=== PATIENT | female | born 1930 | race Caucasian/White ===

== ENCOUNTER → 2017-01-21 | Outpatient (CLI) | payer OTHER, MEDICARE ==
[~2017-01-21] MED LIST: ACET-24 PO; ACET1TAB84 PO; AMLO-114 PO; ASPEC325 PO; ASPI81TA28 PO; CLC100 PO; CLON0.2T PO; CTP/1 PO; CYAN10005 PO; DIPH-437 PO; DLCS PR; FRRG PO; HYDR12.55 PO; HYG/25 PO; LEVO137T3 PO; LOSA1TAB38 PO; METF1TAB53 PO; MULT1CAP43 PO; MULTCAP33 PO; OMEG10007 PO; POLY335019 PO; SIMV10TA2 PO; TRMO115 TOP; ULT50X PO
[2017-01-21 17:53] LABS: BASO % 0.5 %; BASO ABS # 0.05 K/uL (0-0.2); COMPLETE YES; EOS % 4.2 %; HEMATOCRIT 38.6 % (37-47); IG% 0.1 %; LYMPH % 16.4 %; LYMPH ABS # 1.53 K/uL (1.2-3.4); MEAN CELL VOLUME 81.6 fL (80-100); MEAN CORPUSCULAR HEMOGLOBIN 26.4 pg (25-34); MEAN CORPUSCULAR HGB CONC 32.4 g/dl (32-36); MEAN PLATELET VOLUME 10.8 fL (7.4-10.4); MONO % 7.3 %; NEUT % 71.5 %; PLATELET COUNT 246 K/uL (130-400); RED BLOOD COUNT 4.73 M/uL (4.2-5.4); WHITE BLOOD COUNT 9.33 K/uL (4.8-10.8)
[2017-01-21 18:00] LABS: ALT/SGPT 16 U/L (12-78); BLOOD UREA NITROGEN 28 mg/dl (7-18); BUN/CREATININE RATIO 33.3 (10-20); CARBON DIOXIDE 24 mmol/L (21-32); CHLORIDE 108 mmol/L (98-107); CREATININE 0.84 mg/dl (0.60-1.20); GLUCOSE 106 mg/dl (70-99); POTASSIUM 4.6 mmol/L (3.5-5.1); SODIUM 141 mmol/L (136-145)
[2017-01-21 18:03] LABS: ALB/GLOB RATIO 0.9 (0.9-2); ALKALINE PHOSPHATASE 90 U/L (45-117); AST/SGOT 13 U/L (15-37)
[2017-01-21 18:21] LABS: RATIO 655.6 mcg/mg (0-30.0)
[2017-01-22 06:35] LABS: ESTIMATED AVERAGE GLUCOSE 154 mg/dl; HA1C FLAG Normal (Normal)
== END | disposition home or self-care (01) ==
LOC: C.LABMFLN 09:48
PROVIDERS: ATTEND Family Medicine
DX: E11.9 Type 2 diabetes mellitus without complications (principal)

== ENCOUNTER → 2017-06-02 | Outpatient (CLI) | payer OTHER, MEDICARE ==
[~2017-06-02] MED LIST changes: -AMLO-114 PO; -CYAN10005 PO; -HYDR12.55 PO; -MULTCAP33 PO
[2017-06-02 18:09] LABS: URINE PROTIEN/CREAT RATIO 0.2 (0-0.2); URINE TOTAL PROTEIN 21.7 mg/dl (0-11.9)
[2017-06-02 18:12] LABS: URINE APPEARANCE CLEAR (CLEAR); URINE BILIRUBIN NEG (NEG); URINE COLOR YELLOW; URINE EPITHELIAL CELL AUTO >30 /lpf (0-5); URINE NITRITE POS (NEG); URINE SPECIFIC GRAVITY 1.023 (1.000-1.030); UROBILINOGEN NEG (NEG)
[2017-06-02 18:21] LABS: BLOOD UREA NITROGEN 31 mg/dl (7-18); BUN/CREATININE RATIO 32.6 (10-20); CALCIUM 9.8 mg/dl (8.5-10.1); CARBON DIOXIDE 26 mmol/L (21-32); CHLORIDE 108 mmol/L (98-107); CREATININE 0.96 mg/dl (0.60-1.20); GLUCOSE 128 mg/dl (70-99); SODIUM 141 mmol/L (136-145)
[2017-06-02 18:22] LABS: MANUAL MICROSCOPIC REQUIRED? NO; PHOSPHORUS 3.3 mg/dl (2.5-4.9); REVIEW REQ? YES
[2017-06-03 06:55] LABS: ESTIMATED AVERAGE GLUCOSE 169 mg/dl; HA1C FLAG Normal (Normal)
== END | disposition home or self-care (01) ==
LOC: C.LABMFLN 15:34
PROVIDERS: ATTEND Internal Medicine Nephrology
DX: E11.9 Type 2 diabetes mellitus without complications (principal); I10 Essential (primary) hypertension

== ENCOUNTER 2017-06-24 05:17 | Inpatient (IN) | payer OTHER, MEDICARE ==
[2017-05-21 14:12] VITALS: BMI 33.0
--- NOTE | 2017-05-21 15:02 | PAT Medication Instructions ---
Service Date May 21, 2017. Current Home Medication List Acetaminophen (Tylenol Arthritis Ext Rel), 650 MG PO Q8H PRN for PRN Acetaminophen/Diphenhydramine (Tylenol Pm), 1 TAB PO HS Aspirin (Aspirin Ec), 81 MG PO HS Chlorthalidone (Hygroton), 25 MG PO QAM Clonidine Hcl (Catapres), 0.2 MG PO BID Fish Oil (Stafford-3), 1 CAP PO BID Levothyroxine Sodium (Levothyroxine Sodium), 1 TAB PO QAM Losartan Potassium (Cozaar), 100 MG PO QAM Metformin Hcl (Glucophage Ext Rel), 1,000 MG PO BID Multiple Vitamins W/ Minerals (Icaps Areds 2), 1 TAB PO BID Simvastatin (Zocor), 10 MG PO HS Triamcinolone Acet (Triamcinolone Acetonide), 1 APPLN 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 Instructions For Your Scheduled Surgery - Hold the following medications 2 weeks prior to surgery: Fish Oil (Stafford-3), 1 CAP PO BID - Hold the following medications 48 hours prior to surgery: Metformin Hcl (Glucophage Ext Rel), 1,000 MG PO BID - Hold the following medications 24 hours prior to surgery: Triamcinolone Acet (Triamcinolone Acetonide), 1 APPLN TOP TID PRN - Hold the following medications the morning of surgery: Chlorthalidone (Hygroton), 25 MG PO QAM Losartan Potassium (Cozaar), 100 MG PO QAM Multiple Vitamins W/ Minerals (Icaps Areds 2), 1 TAB PO BID - Take the following medications the morning of surgery with a sip of water OTHERWISE NOTHING TO EAT OR DRINK AFTER MIDNIGHT: Levothyroxine Sodium (Levothyroxine Sodium), 1 TAB PO QAM Clonidine Hcl (Catapres), 0.2 MG PO BID Acetaminophen (Tylenol Arthritis Ext Rel), 650 MG PO Q8H PRN for PRN (may take if needed up to 4 hours prior to surgery) - Take the following medications as scheduled the night before surgery: Simvastatin (Zocor), 10 MG PO HS Aspirin (Aspirin Ec), 81 MG PO HS Acetaminophen/Diphenhydramine (Tylenol Pm), 1 TAB PO HS If you have any questions please call us at [phone] or [phone] or [phone]
[2017-05-21 15:40] LABS: BASO % 0.3 %; BASO ABS # 0.03 K/uL (0-0.2); COMPLETE YES; EOS % 1.7 %; HEMATOCRIT 39.7 % (37-47); IG% 0.2 %; LYMPH % 16.4 %; LYMPH ABS # 1.67 K/uL (1.2-3.4); MEAN CELL VOLUME 82.5 fL (80-100); MEAN CORPUSCULAR HEMOGLOBIN 26.4 pg (25-34); MEAN PLATELET VOLUME 9.9 fL (7.4-10.4); MONO % 7.2 %; NEUT % 74.2 %; PLATELET COUNT 329 K/uL (130-400); RED BLOOD COUNT 4.81 M/uL (4.2-5.4); WHITE BLOOD COUNT 10.21 K/uL (4.8-10.8)
[2017-05-21 15:56] LABS: BLOOD UREA NITROGEN 26 mg/dl (7-18); BUN/CREATININE RATIO 21.7 (10-20); C-REACTIVE PROTEIN < 0.29 mg/dl (0-0.29); CALCIUM 9.3 mg/dl (8.5-10.1); CARBON DIOXIDE 24 mmol/L (21-32); CHLORIDE 107 mmol/L (98-107); GLUCOSE 135 mg/dl (70-99); POTASSIUM 3.9 mmol/L (3.5-5.1); SODIUM 142 mmol/L (136-145)
[2017-05-21 15:58] LABS: PARTIAL THROMBOPLASTIN RATIO 1.1; PROTHROMBIN TIME (PATIENT) 11.1 SECONDS (9.0-12.0)
--- NOTE | 2017-06-19 12:22 | History and Physical ---
History & Physical Date Jun 19, 2017. Chief Complaint Progressive Right Hip Pain History of Present Illness The patient is a 86 year old female with complaints of Right hip pain. Initially responsive to injections, but not recently. Pain progressive and increasing despite conservative care to the point she needs to use a walker to get around. Mostly groin and thigh pain. Concerned about falling. Walking tolerance less than a block. Past Medical/Surgical History HTN Elevated cholesterol Diabetes X 10 years Hypothyroidism Obesity - BMI = 34 Bilateral TKR Left THR Hammertoe repair Throid removal Additional History Hepatic Disease: No Endocrine Disorder: Yes Kidney Disease: No Hypertension: Yes Heart Disease: No Bleeding Tendencies: No Infectious Diseases: No Allergies Coded Allergies: No Known Allergies (Verified , 05/21/17) Home Medications Scheduled Acetaminophen/Diphenhydramine (Tylenol Pm), 1 TAB PO HS Aspirin (Aspirin Ec), 81 MG PO HS Chlorthalidone (Hygroton), 25 MG PO QAM Clonidine Hcl (Catapres), 0.2 MG PO BID Fish Oil (Marina-3), 1 CAP PO BID Levothyroxine Sodium (Levothyroxine Sodium), 1 TAB PO QAM Losartan Potassium (Cozaar), 100 MG PO QAM Metformin Hcl (Glucophage Ext Rel), 1,000 MG PO BID Multiple Vitamins W/ Minerals (Icaps Areds 2), 1 TAB PO BID Simvastatin (Zocor), 10 MG PO HS Scheduled PRN Acetaminophen (Tylenol Arthritis Ext Rel), 650 MG PO Q8H PRN for PRN Triamcinolone Acet (Triamcinolone Acetonide), 1 APPLN TOP TID PRN for RN Physical Examination Skin: warm/dry, no rash Eyes: normal inspection ENT: normal ENT inspection Head: normocephalic Neck: supple, no adenopathy Respiratory/Chest: lungs clear Cardiovascular: regular rate, rhythm Abdomen / GI: non tender Back: normal inspection Extremities: normal inspection Neurologic/Psych: no motor/sensory deficits Addiitonal Comments: X-rays of RIght HIp - advanced right hip DJD. Progressed significantly from . Good bone density Diagnosis Advanced right Hip DJD Plan of Treatment Right Total Hip Replacement
[2017-06-24] VITALS (23 sets, daily range): BP systolic 114–227; BP diastolic 58–96; PULSE 48–71; TEMP 36–36.4; O2SAT 91–98; Ht 160 cm; Wt 86.1 kg
[~2017-06-24] VITALS: Ht 160 cm; Wt 86.1 kg
[~2017-06-24 05:17] MED LIST changes: -ACET-24 PO; -ASPEC325 PO; -CLC100 PO; -CTP/1 PO; -DLCS PR; -FRRG PO; -POLY335019 PO; -ULT50X PO
[2017-06-24] MEDS ORDERED: METOCLOPRAMIDE HCL 10 MG TAB PO SCH (06:00)
[2017-06-24] MEDS ORDERED: GABAPENTIN 300 MG CAP PO SCH (06:00)
[2017-06-24] MEDS ORDERED: TRANEXAMIC ACID INJ 1,000 MG in SODIUM CHLORIDE 0.9% 100ML 100 ML IV SCH (06:00)
[2017-06-24] MEDS ORDERED: SCOPOLAMINE 1.5 MG TDSY TD SCH (06:00)
[2017-06-24] MEDS ORDERED: ACETAMINOPHEN 500 MG TAB PO SCH (06:00)
[2017-06-24] MEDS ORDERED: CEFAZOLIN 2000 MG/60 ML D5W 60 ML IV SCH (06:00)
[2017-06-24] MEDS ORDERED: LACTATED RINGER'S 1000ML IV SCH (06:00)
[2017-06-24] MEDS ORDERED: LACTATED RINGER'S 1000ML 1,000 ML IV SCH (06:00)
[2017-06-24] MEDS ORDERED: FAMOTIDINE 20 MG TAB PO SCH (06:00)
[2017-06-24] MEDS ORDERED: BUPIVACAINE 0.5 % 5 MG/1 ML PF 10ML VIAL ONE (06:26)
[2017-06-24] MEDS ORDERED: PROPOFOL IV EMULSION 10 MG/ML 20 ML VIAL IV ONE (06:29)
[2017-06-24] MEDS ORDERED: ONDANSETRON INJ 2 MG/ML 2 ML VIAL ONE (06:29)
[2017-06-24] MEDS ORDERED: MIDAZOLAM HCL 1 MG/ML 2ML VIAL ONE (06:30)
[2017-06-24] MEDS ORDERED: FENTANYL CITRATE INJ 50 MCG/1 ML 2 ML VIAL ONE (06:30)
[2017-06-24] MEDS ORDERED: MoRPHine SULFATE PF 1 MG/ML 10 ML AMP/VIAL ONE (06:35)
[2017-06-24] MEDS ORDERED: BUPIVACAINE/EPINEPHRINE 0.5% MPF 1:200,000 10 ML VIAL ONE (06:41)
[2017-06-24] MEDS ORDERED: BACITRACIN 50000 UNIT VIAL ONE (06:41)
--- NOTE | 2017-06-24 06:48 | History & Physical Bridge Note ---
H&P Re-Evaluation Bridge Note: I have examined the patient, reviewed the History & Physical and in the interval since the performance of the History & Physical I have noted the following changes of clinical significance: No changes noted
[2017-06-24] MEDS ORDERED: WATER, STERILE FOR INJ 10 ML VIAL ONE (07:12)
[2017-06-24] MEDS ORDERED: EpHEDrine SULFATE INJ 50 MG/ML AMP ONE (07:12)
[2017-06-24] MEDS ORDERED: NALOXONE HCL INJ 0.08 MG in SYRINGE 1.8 ML IV PRN (07:25)
[2017-06-24] MEDS ORDERED: LACTATED RINGER'S 1000ML 500 ML IV PRN (07:25)
[2017-06-24] MEDS ORDERED: SODIUM CHLORIDE 0.9% 1000ML 1,000 ML IV PRN (07:25)
[2017-06-24] MEDS ORDERED: NALOXONE HCL INJ 1 MG in SODIUM CHLORIDE 0.9% 1000ML 1,000 ML IV PRN (07:25)
[2017-06-24] MEDS ORDERED: MEPERIDINE HCL 25 MG/ML CARP IV PRN (07:30)
[2017-06-24] MEDS ORDERED: ONDANSETRON INJ 2 MG/ML 2 ML VIAL IV PRN ×2 (07:30)
[2017-06-24] MEDS ORDERED: MoRPHine SULFATE 2 MG/ML CARP IV PRN (07:30)
[2017-06-24] MEDS ORDERED: FENTANYL CITRATE INJ 50 MCG/1 ML 2 ML VIAL IV PRN (07:30)
[2017-06-24] MEDS ORDERED: ATROPINE SULFATE 0.1 MG/ML 5ML SYR IV PRN (07:30)
[2017-06-24] MEDS ORDERED: LORAZEPAM 1 MG TAB PO PRN (07:30)
[2017-06-24] MEDS ORDERED: KETOROLAC TROMETHAMINE 15 MG/ML VIAL IV. PRN (07:30)
[2017-06-24] MEDS ORDERED: MoRPHine SULFATE PF 1 MG/ML 10 ML AMP/VIAL EPI PRN (07:30)
[2017-06-24] MEDS ORDERED: EpHEDrine SULFATE INJ 50 MG/ML AMP IV PRN ×2 (07:30)
[2017-06-24] MEDS ORDERED: DiphenhydrAMINE HCL 50 MG/ML VIAL IV PRN (07:30)
[2017-06-24] MEDS ORDERED: PROMETHAZINE HCL INJ 6.25 MG in SODIUM CHLORIDE 0.9% 50ML 50 ML IV PRN (07:30)
[2017-06-24] MEDS ORDERED: NALOXONE HCL 0.4 MG/1 ML VIAL/CARP IV PRN (07:30)
[2017-06-24] MEDS ORDERED: NALBUPHINE HCL INJ 10 MG/ML AMP IV PRN (07:30)
[2017-06-24] MEDS ORDERED: NO NARCOTICS OR SEDATIVES SCH (07:30)
--- NOTE | 2017-06-24 08:37 | [facility] Post Operative Brief Note ---
Immediate Operative Summary Operative Date Jun 24, 2017. Pre-Operative Diagnosis Advanced right hip degenerative joint disease Post-Operative Diagnosis Same as preop Procedure(s) Performed Right Total Hip Arthroplasty, uncemented Surgeon Dr. Antoine [employer] Technician Surgeon(s) Mohsen Mckeon PA-C Estimated Blood Loss 200 cc Findings Right Hip DJD Fluids (cc crystalloids) 1200 cc Specimens A: right femoral head Drains None Anesthesia Spinal Complication(s) None Disposition Recovery Room / PACU
[2017-06-24] MEDS ORDERED: GLUCOSE 10 TABS/TUBE PO PRN (08:45)
[2017-06-24] MEDS ORDERED: METOCLOPRAMIDE HCL INJ 5 MG/ML 2 ML VIAL IV PRN (08:45)
[2017-06-24] MEDS ORDERED: BISACODYL 10 MG SUPP PR PRN (08:45)
[2017-06-24] MEDS ORDERED: ALUMINUM/MAGNESIUM/SIMETH (MAALOX MAX) 30 ML UDC PO PRN (08:45)
[2017-06-24] MEDS ORDERED: SILVER SULFADIAZINE 1% CR 50 GM JAR EXT PRN (08:45)
[2017-06-24] MEDS ORDERED: DEXTROSE 50% 50 ML SYR IV PRN (08:45)
[2017-06-24] MEDS ORDERED: TRIAMCINOLONE ACET 0.1% OINT 15 GM TUBE TOP PRN (08:45)
[2017-06-24] MEDS ORDERED: GLUCAGON FOR INJ 1 MG VIAL SQ PRN (08:45)
[2017-06-24] MEDS ORDERED: NON-FORMULARY MEDICATION (Acetaminophen (Tylenol Arthritis Ext Rel) 650 MG) PO PRN (08:45)
[2017-06-24] MEDS ORDERED: GLUCOSE 40% GEL 15 GM TUBE PO PRN (08:45)
--- NOTE | 2017-06-24 08:59 | Anesthesiology Progress Note ---
Anesthesia Post Op Note Date & Time Jun 24, 2017 at 08:58 Vital Signs Pain Intensity: 0 Vital Signs Past 12 Hours Date Time Temp Pulse Resp B/P (MAP) Pulse Ox O2 Delivery O2 Flow Rate FiO2 06/24/17 08:55 36.2 61 16 118/50 94 Oxymask 2 06/24/17 08:45 59 16 108/64 95 Oxymask 2 06/24/17 08:35 60 16 118/48 97 Oxymask 5 06/24/17 08:28 36.3 60 16 116/53 96 Oxymask 10 06/24/17 05:47 36.4 71 20 227/96 98 Room Air Notes Mental Status: alert / awake / arousable, participated in evaluation Pt Amnestic to Procedure: Yes Nausea / Vomiting: adequately controlled Pain: adequately controlled Airway Patency, RR, SpO2: stable & adequate BP & HR: stable & adequate Hydration State: stable & adequate Neuraxial Anesthesia: was administered, sensory block is resolving Anesthetic Complications: no major complications apparent
[2017-06-24] MEDS ORDERED: MULTIVITAMIN TAB PO SCH (09:00)
--- NOTE | 2017-06-24 09:10 | DIAGNOSTIC IMAGING REPORT ---
RIGHT PELVIS/UNILATERAL HIP 1 VIEW CLINICAL HISTORY: IN PACU - A/P PELVIS and LATERAL HIP INCLUDING ALL OF IMPLANT Right postoperative evaluation COMPARISON: None DISCUSSION: Total right hip replacement with prosthetic in good position. Pre-existing total left hip replacement. Expected soft tissue postoperative change. IMPRESSION: Anatomic alignment status post total right hip replacement. The above report was generated using voice recognition software. It may contain grammatical, syntax or spelling errors. Electronically signed by: Usman Reynolds M.D. 06/24/2017 9:09 AM Dictated Date/Time: 06/24/2017 9:08 AM
--- NOTE | 2017-06-24 09:56 | OPERATIVE REPORT ---
DATE OF OPERATION: 06/24/2017 SURGEON: Dr. Sagar Antoine. INDUSTRIAL X RAY OPERATOR: LAWANDA Berman PREOPERATIVE DIAGNOSIS: Right hip degenerative joint disease. POSTOPERATIVE DIAGNOSIS: Same. PROCEDURE PERFORMED: Right uncemented total hip arthroplasty. COMPLICATIONS: None. ESTIMATED BLOOD LOSS: 200 mL. FLUID REPLACEMENT: 1200 mL crystalloid fluid replacement. ANESTHESIA: Spinal. DRAINS: None. SPECIMENS: Right femoral head sent for pathology. OPERATIVE INDICATIONS: The patient is an 86-year-old female who has had a year history of significantly increased right hip pain and discomfort. She has been through extensive conservative treatment. This became less effective over time. She has become more debilitated by her disease and had to resort to a walker to get around. She felt very unstable due to her pain and was concerned about falling. X-rays show progressive hip arthritis over the past 6 months. The patient elected to proceed with operative treatment. OPERATIVE FINDINGS: Operative findings revealed advanced right hip DJD. She had grade 4 [id number] disease of the femoral head and acetabulum. She had pretty significant joint effusion with some moderate synovitis. OPERATIVE IMPLANTS: Operative implants consisted of: 1. Biomet G7 size 50-mm acetabular shell. 2. A 6.5 cancellous acetabular screws, 1 at 35 mm length and 1 at 20 mm in length. 3. An apex hole eliminator. 4. Highly cross-linked polyethylene liner with fields placed very inferior and posterior. 5. A DePuy size 10.5 small stature AML femoral stem. 6. A +9/32 mm metal articular ball. OPERATIVE PROCEDURE: The patient was taken to the operating room, identified and placed on the operating table in supine position. All contact areas were appropriately padded. IV antibiotics were provided by the anesthesia team. A spinal anesthetic had been implemented in the holding area. Lynn catheter was placed in sterile fashion. The patient was then placed in the left lateral decubitus position. An axillary roll was placed. Stulberg hip positioner was used for positioning. All contact areas were meticulously padded and the right hip and leg were then prepped and draped in the usual sterile fashion. A posterolateral approach to the right hip was then performed through a curvilinear incision centered over the greater trochanter. Sharp dissection was carried out through the subcutaneous tissue down to the level of the IT band and gluteal fascia. The IT band and gluteal fascia were incised longitudinally in line with skin incision. The underlying greater trochanteric bursa was excised. The piriformis and external rotators were tagged and taken off the posterior aspect of the hip joint capsule. Great care was taken throughout the procedure to protect the sciatic nerve at all times. A posterior capsulotomy was then performed leaving a large flap for later repair. Hip was internally rotated and dislocated. Femoral neck osteotomy cut was made with the final cut of 15 mm above the lesser trochanter. Femoral head was removed and sent for pathology. The femur was retracted anteriorly. Attention was then drawn to the acetabulum. The acetabular labrum was excised. The pulvinar fat was excised. Sequential reaming of the acetabulum was then performed beginning with a size 45 and progressing up to 49. A 50-mm Biomet G7 acetabular shell was then placed in about 40 degrees of lateral opening and 20 degrees of anteversion. It was fixed with two 6.5 cancellous acetabular screws. A trial liner was placed. Attention was then drawn to the femur. The proximal femur was entered with a cookie cutter followed by canal finder and lateralizing reamer. Sequential reaming of the femur was then performed beginning with a size 10. We got pretty good chatter at 10 and concerning that the 12 implant on the other side, I could not sit down on the calcar. We elected to broach. We broached it with a 7.5 broach and got good fit. We elected not to place a bigger implant. Calcar reamer was used to smoothen off the calcar. I trialed the hip. The +5 articular ball just had really loose soft tissue tension. We used the +9. The hip was fully stable in full extension and external rotation and flexion to 90 degrees and internal rotation to [address] a fields inferior and posterior to maximize stability in flexion. Attention was then drawn toward placing these components. All trial components were removed. An apex hole eliminator was placed. A highly cross-linked polyethylene liner with a fields placed inferior and posterior was placed. A 10.5 small stature AML femoral stem was placed. We got good fit. A +9/32 mm articular ball was placed. Hip was located and once again found to be stable. Attention was then drawn toward closing. The wound was irrigated with copious amounts of pulsatile lavage solution. I did inject locally with 60 mL of 0.5% Marcaine with epinephrine. The posterior capsule and external rotators were repaired through drill holes in the posterior trochanter with #2 Ti-Cron suture. The IT band and gluteal fascia were then closed with #1 PDS suture in running fashion. The subcutaneous tissues were then closed with 2 layers, the deep layer #1 Vicryl suture and subcutaneous tissues with 2-0 Dexon suture in a buried interrupted fashion. The skin was closed with skin peace. Leg was then cleaned and dried and a sterile dressing of Xeroform, 4 x 4, sterile ABD pad and foam tape was applied. The patient then transferred to the recovery room in stable condition. The patient tolerated the procedure well with no complications. All needle and sponge counts were correct at the end of the operation. I attest to the content of the Intraoperative Record and any orders documented therein. Any exception s are noted below.
[2017-06-24] MEDS: NSS + 20MEQ KCL 1000ML 1,000 ML IV SCH ×2 (11:39→20:53)
[2017-06-24] MEDS: KETOROLAC TROMETHAMINE 15 MG/ML VIAL IV. SCH ×3 (11:42→22:59)
[2017-06-24 12:45] LABS: BASO % 0.2 %; BASO ABS # 0.03 K/uL (0-0.2); COMPLETE YES; EOS % 0.2 %; HEMATOCRIT 32.3 % (37-47); IG% 0.3 %; LYMPH % 6.6 %; LYMPH ABS # 1.18 K/uL (1.2-3.4); MEAN CELL VOLUME 83.9 fL (80-100); MEAN CORPUSCULAR HEMOGLOBIN 26.8 pg (25-34); MEAN CORPUSCULAR HGB CONC 31.9 g/dl (32-36); MEAN PLATELET VOLUME 9.3 fL (7.4-10.4); MONO % 6.7 %; PLATELET COUNT 267 K/uL (130-400); RED BLOOD COUNT 3.85 M/uL (4.2-5.4); WHITE BLOOD COUNT 17.83 K/uL (4.8-10.8)
[2017-06-24] MEDS: FERROUS GLUCONATE 324 MG TAB PO SCH ×2 (12:54→17:31)
[2017-06-24] MEDS: INSULIN HUMAN REGULAR SC SCH ×3 (12:56→20:50)
[2017-06-24 13:19] LABS: BUN/CREATININE RATIO 32.2 (10-20); CALCIUM 9.1 mg/dl (8.5-10.1); CREATININE 0.93 mg/dl (0.60-1.20); MAGNESIUM 1.7 mg/dl (1.8-2.4); POTASSIUM 3.9 mmol/L (3.5-5.1)
[2017-06-24 13:22] LABS: ALB/GLOB RATIO 0.9 (0.9-2)
--- NOTE | 2017-06-24 13:51 | INTERNAL MEDICINE CONSULTATION ---
DATE OF CONSULTATION: 06/24/2017 DATE OF CONSULTATION: 06/24/2017. REASON FOR CONSULTATION: Medical care. HISTORY OF PRESENT ILLNESS: The patient is an 86-year-old pleasant white female with a history of chronic arthritis. The patient failed outpatient conservative management and presented to the hospital for an elective right hip arthroplasty. The patient went through the procedure uneventfully early this morning. Currently, the patient is awake and pleasant. She has no new complaints or symptoms. We were consulted for medical care as the patient has multiple medical issues including diabetes and hypertension. PAST MEDICAL HISTORY: 1. Hypertension. 2. Diabetes mellitus for 10 years not insulin requiring. 3. Dyslipidemia. 4. Hypothyroidism. 5. Obesity with a BMI of 34. 6. Bilateral total knee replacement. 7. History of left total hip replacement. 8. Hypothyroidism. 9. History of thyroidectomy. 10. History of hammertoe repair. ALLERGIES: No known drug allergies. HOME MEDICATIONS: 1. Tylenol PM p.r.n. 2. Aspirin 81 mg daily. 3. Chlorthalidone 25 mg q.a.m. 4. Clonidine, Catapres 0.2 mg p.o. b.i.d. 5. Fish oil. 6. Levothyroxine. 7. Losartan 100 mg daily. 8. Metformin 1000 mg p.o. b.i.d. 9. Multivitamin. 10. Zocor 10 mg p.o. at bedtime. SOCIAL HISTORY: No smoking or drinking. She is a . Her . FAMILY HISTORY: Family history of heart disease in her brother and mother. No family history of diabetes that she is aware of. REVIEW OF SYSTEMS: Denies any headache, double vision, blurry vision. Denies any chest pain or palpitation. Denies any cough, wheezing, shortness of breath. Denies any diarrhea, blood in the stool. Denies any burning sensation in the urine or blood. Denies any fever or rash. Denies any weight loss. Denies any burning sensation in the urine or blood. Denies any focal weakness, tingling or numbness. Admits to some joint pain as mentioned in HPI due to arthritis. PHYSICAL EXAMINATION: GENERAL: Slightly obese, not in acute distress. VITAL SIGNS: Heart rate is 63, respiratory rate is 18, blood pressure 118/46, pulse ox is 94 on 2 liters. HEAD, EYES, EARS, NOSE, AND THROAT: No jaundice, no pallor, moist mucous membranes. NECK: Supple. HEART: S1, S2 sounds were a little bit distant, but no murmur or gallop appreciated, normal rate and rhythm. LUNGS: Clear to auscultation bilaterally. Normal chest wall expansion. ABDOMEN: Soft, nontender, nondistended. NEUROLOGIC: Awake, alert, oriented to time, place, and person. Moves all extremities. Sensation intact. Cranial nerves II-XII appear to be intact. PSYCHIATRIC: Normal and appropriate response and affect. EXTREMITIES: No edema. The patient able to wiggle her right toes and me touching her right toes yet surgical site is wrapped. LABORATORY DATA: Most recent labs are from 05/21/2017. White blood cell count 10.2, hemoglobin is 12.7 and platelet count is 329. Sodium 142, potassium 3.9, BUN is 26, creatinine 1.2. ASSESSMENT: 1. Hypertension. 2. Diabetes mellitus, non-insulin requiring. 3. History of proteinuria. 4. Dyslipidemia. 5. Obesity. 6. Hypothyroidism. 7. Degenerative joint disease, status post right uncemented total hip arthroplasty 06/24/2017. PLAN: 1. Initially when I entered the patient's room she was sleeping and she was snoring extremely loud. I suspect clinically suspected obstructive sleep apnea. The patient was instructed to obtain a sleep study as an outpatient. Will not order night study nocturnal pulse ox here in the hospital as she is already on 2 liters, possible options for physician following up tomorrow if she is off the 2 liters oxygen can be ordered during her hospital stay. 2. Deep venous thrombosis prophylaxis and physical therapy will be left up to primary team as per her orthopedic physician preference. 3. We will currently hold metformin and losartan until obtaining new renal function today and another followup tomorrow for renal function, especially her blood pressure is borderline low. 4. We will obtain CMP and CBC today and in a.m. 5. We will place her on sliding scale insulin. 6. We will also hold the chlorthalidone as she appears slightly dehydrated. 7. Continue famotidine for GI prophylaxis. 8. Continue Dilaudid for pain management. In case of renal function improvement we will recommend to hold ketorolac, which is already ordered. 9. Continue levothyroxine. We will continue to follow up the patient and further recommendation will follow. Thank you for the opportunity to share in the care of Mrs. Palomo.
--- NOTE | 2017-06-24 14:04 | PROGRESS NOTE ---
DATE: 06/24/2017 DATE: 06/24/2017. SUBJECTIVE: An 86-year-old female postop from a right total hip replacement. She is doing well. No pain. Just feels tired. No chest pain or shortness of breath. Not feeling dizzy or lightheaded. OBJECTIVE: VITAL SIGNS: Temperature is 36.0. Vital signs stable. PHYSICAL EXAMINATION: GENERAL: Reveals a pleasant elderly female. She was sleeping when I went into the room this afternoon. I had to wake her. She woke relatively easy. LUNGS: Clear to auscultation. HEART: Has a regular rate and rhythm. ABDOMEN: Soft, nontender, nondistended. EXTREMITY EXAMINATION: Grossly neurovascularly intact except as follows: Examination of right hip and leg reveals the leg to be well aligned. She can dorsiflex and plantarflex her foot appropriately. She is neurologically intact. Dressing is clean, dry and intact. X-RAYS: X-rays of the right hip from recovery room reviewed. It shows right uncemented total hip arthroplasty. The components looked to be in good position. No signs of problems. ASSESSMENT: An 86-year-old white female postop from a right total hip replacement, doing well. Pain is controlled. Hip is located. She is neurologically intact. PLAN: 1. DVT prophylaxis including thigh-high TEDs, SCDs, and aspirin twice a day. 2. PT/OT. Weightbearing as tolerated. Right total hip protocol. 3. Pain control. Doing well with current pain regimen. 4. Disposition. She is hoping to be discharged to [place] for a brief rehab stay once medically stable.
[2017-06-24] MEDS: ACETAMINOPHEN 500 MG TAB PO SCH ×2 (14:29→22:58)
[2017-06-24] MEDS: CHECK SCOPOLAMINE PATCH PLACEMENT SCH ×2 (15:52→22:53)
[2017-06-24] MEDS: CEFAZOLIN IV 2,000 MG in DEXTROSE 5% 50ML 50 ML IV SCH ×2 (15:52→22:59)
[2017-06-24] MEDS ORDERED: TRANEXAMIC ACID INJ 1,000 MG in SODIUM CHLORIDE 0.9% 100ML 100 ML IV ONE (16:00)
--- NOTE | 2017-06-24 17:20 | Progress Note ---
Progress Note Date of Service Jun 24, 2017. Progress Note Was called for Heart rate of 44-48 while patient is awake patient is asymptomatic said that usually runs in the 60s Instructed to do sleep study as an outpatient EKG showed sinus bradycardia possibly side effect from clonidine instructed to do sleep study as an out patient Consult vest busheler in am (patient does not have vest busheler ) Claudette SINGH hospitalist
[2017-06-24] MEDS: DOCUSATE SODIUM 100 MG CAP PO SCH (20:52)
[2017-06-24] MEDS: CEROVITE ADV FORMULA TAB PO SCH (20:52)
[2017-06-24] MEDS ORDERED: CLONIDINE HCL 0.1 MG TAB PO SCH (21:00)
[2017-06-24] MEDS ORDERED: NON-FORMULARY MEDICATION (Acetaminophen/Diphenhydramine (Tylenol Pm) 1 TAB) PO SCH (21:00)
[2017-06-24] MEDS: SENNA 8.6 MG TAB PO SCH (21:04)
[2017-06-24] MEDS: ASPIRIN 325 MG ECTAB PO SCH (21:04)
[2017-06-24] MEDS: SIMVASTATIN 10 MG TAB PO SCH (21:04)
[2017-06-25] VITALS (19 sets, daily range): BP systolic 119–191; BP diastolic 64–74; PULSE 34–79; TEMP 36.3–36.8; O2SAT 93–98
--- NOTE | 2017-06-25 02:17 | Progress Note ---
Progress Note Date of Service Jun 25, 2017. Progress Note Informed by RN that HR in mid 30- low 40's. Patient asymptomatic. Previous episode yesterday evening with EKG showing sinus bradycardia. Suspect cause was clonidine however that was not stopped and she received an additional dose at 20 :52 Plan - EKG stat - hold clonidine - As per previous plan by Dr Lexi Cartagena we will consult cardiology
[2017-06-25 05:46] LABS: BASO % 0.1 %; BASO ABS # 0.01 K/uL (0-0.2); COMPLETE YES; EOS % 0.9 %; HEMATOCRIT 29.9 % (37-47); IG% 0.3 %; LYMPH % 8.5 %; LYMPH ABS # 0.97 K/uL (1.2-3.4); MEAN CELL VOLUME 84.5 fL (80-100); MEAN CORPUSCULAR HEMOGLOBIN 26.8 pg (25-34); MEAN CORPUSCULAR HGB CONC 31.8 g/dl (32-36); MEAN PLATELET VOLUME 9.8 fL (7.4-10.4); MONO % 8.9 %; NEUT % 81.3 %; PLATELET COUNT 230 K/uL (130-400); RED BLOOD COUNT 3.54 M/uL (4.2-5.4); WHITE BLOOD COUNT 11.39 K/uL (4.8-10.8)
[2017-06-25] MEDS: LEVOTHYROXINE 137 MCG TAB PO SCH (06:14)
[2017-06-25] MEDS: KETOROLAC TROMETHAMINE 15 MG/ML VIAL IV. SCH ×3 (06:14→18:00)
[2017-06-25] MEDS: ACETAMINOPHEN 500 MG TAB PO SCH ×3 (06:14→21:23)
[2017-06-25 06:37] LABS: ALB/GLOB RATIO 0.9 (0.9-2); ALKALINE PHOSPHATASE 93 U/L (45-117); ALT/SGPT 22 U/L (12-78); AST/SGOT 34 U/L (15-37); BLOOD UREA NITROGEN 25 mg/dl (7-18); BUN/CREATININE RATIO 26.4 (10-20); CALCIUM 8.6 mg/dl (8.5-10.1); CARBON DIOXIDE 27 mmol/L (21-32); CHLORIDE 109 mmol/L (98-107); CREATININE 0.96 mg/dl (0.60-1.20); GLUCOSE 126 mg/dl (70-99); MAGNESIUM 1.6 mg/dl (1.8-2.4); POTASSIUM 4.5 mmol/L (3.5-5.1); SODIUM 140 mmol/L (136-145)
[2017-06-25] MEDS: NSS + 20MEQ KCL 1000ML 1,000 ML IV SCH (06:40)
[2017-06-25] MEDS ORDERED: HYDROmorphone INJ 0.5 MG/0.5 ML SYR IV PRN (07:01)
[2017-06-25] MEDS ORDERED: TRAMADOL HCL 50 MG TAB PO PRN (07:01)
[2017-06-25] MEDS: CHECK SCOPOLAMINE PATCH PLACEMENT SCH ×2 (07:18→15:32)
[2017-06-25] MEDS ORDERED: DC INTRASPINAL MORPHINE SCH (07:30)
[2017-06-25 08:05] LABS: ESTIMATED AVERAGE GLUCOSE 160 mg/dl; HA1C FLAG Normal (Normal)
[2017-06-25] MEDS: FERROUS GLUCONATE 324 MG TAB PO SCH ×3 (08:20→17:13)
[2017-06-25] MEDS: CEROVITE ADV FORMULA TAB PO SCH ×2 (08:20→21:22)
[2017-06-25] MEDS: ASPIRIN 325 MG ECTAB PO SCH ×2 (08:20→21:22)
[2017-06-25] MEDS: PANTOprazole SOD 40 MG TAB PO SCH (08:20)
[2017-06-25] MEDS: DOCUSATE SODIUM 100 MG CAP PO SCH ×2 (08:20→21:22)
[2017-06-25] MEDS: INSULIN HUMAN REGULAR SC SCH ×4 (08:24→21:21)
[2017-06-25] MEDS: MAGNESIUM SULFATE 1GM / D5W 1 GM in PREMIXED IN D5W 100 ML IV SCH ×2 (08:25→09:25)
[2017-06-25] MEDS ORDERED: LOSARTAN POTASSIUM 50 MG TAB PO SCH (09:00)
[2017-06-25] MEDS ORDERED: CHLORTHALIDONE 25 MG TAB PO SCH (09:00)
--- NOTE | 2017-06-25 10:17 | Anesthesiology Progress Note ---
Anesthesia Post Op Note Date & Time Jun 25, 2017 at 10:17 Vital Signs Vital Signs Past 12 Hours Date Time Temp Pulse Resp B/P (MAP) Pulse Ox O2 Delivery O2 Flow Rate FiO2 06/25/17 07:57 94 Nasal Cannula 1.0 06/25/17 07:51 36.4 56 18 146/74 (98) 94 Nasal Cannula 1.0 06/25/17 07:20 96 Nasal Cannula 1.0 06/25/17 06:11 36.4 56 18 151/74 (99) 97 Nasal Cannula 2.0 06/25/17 06:10 18 95 06/25/17 05:02 14 97 06/25/17 04:03 16 97 06/25/17 03:21 36.3 50 14 153/72 (99) 97 Nasal Cannula 1.5 06/25/17 03:04 12 96 06/25/17 02:20 38 06/25/17 02:11 36.3 34 12 119/69 (86) 94 Nasal Cannula 1.5 06/25/17 02:02 16 93 06/25/17 01:00 18 95 06/25/17 00:00 14 96 06/24/17 23:03 14 95 06/24/17 23:00 36.3 63 14 161/74 (103) 95 Nasal Cannula 1.5 Notes Mental Status: alert / awake / arousable, participated in evaluation Pt Amnestic to Procedure: Yes Nausea / Vomiting: adequately controlled Pain: adequately controlled Airway Patency, RR, SpO2: stable & adequate BP & HR: stable & adequate Hydration State: stable & adequate Neuraxial Anesthesia: sensory block resolved Anesthetic Complications: no major complications apparent
--- NOTE | 2017-06-25 11:03 | CARDIOLOGY PROGRESS NOTE ---
DATE: 06/25/2017 DATE: 06/25/2017. SUBJECTIVE: Mrs. Palomo is resting comfortably in bed without complaints of chest pain, dyspnea, syncope, or presyncope. OBJECTIVE: VITAL SIGNS: Blood pressure is 146/74 with a regular pulse of 56. Respiratory rate is 18. The patient is afebrile at 36.4 degrees Celsius. Saturations 95% on room air. NECK: Supple with full carotid upstrokes. There are no carotid bruits. Jugular venous pressure is flat at 90 degrees. There is no thyromegaly. CARDIOVASCULAR EXAMINATION: Reveals a regular rhythm with normal S1 and S2. Heart sounds are distant. No obvious murmurs. LUNGS: Clear without rales, rhonchi, or wheezes. ABDOMEN: Soft, nontender without bruits. EXTREMITIES: Reveal intact radial artery pulses bilaterally. There is no peripheral edema. Right hip is dressed. LABORATORY DATA: CBC notes a hemoglobin of 9.5, hematocrit 29.9, white count 11.3, platelet count 230,000. Electrolytes note a sodium of 140, potassium 4.5, chloride 109, bicarb 27, BUN 25, creatinine 0.9, glucose 126. Troponin I level is undetectable at less than 0.015. EKG performed at 0216 this morning noted marked sinus bradycardia with sinus arrhythmia. There is low voltage throughout and poor R-wave progression across the anterior precordium. IMPRESSION AND PLAN: 1. Status post right total hip arthroplasty -- per Dr. Antoine. 2. Sinus bradycardia -- likely secondary to a combination of her clonidine and anesthetic agents received yesterday. Agree with holding clonidine for now. Resting heart rate has improved. 3. Hypertension -- controlled. 4. Hypercholesterolemia. 5. Diabetes mellitus.
--- NOTE | 2017-06-25 12:25 | Hospitalist Progress Note ---
Hospitalist Progress Note Date of Service Jun 25, 2017. (Flor Velásquez PA-C) Subjective Pt evaluation today including: conversation w/ patient, physical exam, chart review, lab review, review of studies Pain: right hip, rated 1/10 PO Intake: fair The patient was seen and examined this morning. Patient reports feeling well. She just had her Lynn removed prior to my examination. Patient notes that her pain is adequately controlled. She has gone up and moved from bed to chair, and walks a little with PT OT and did well per her report. She had been eating well yesterday, however this morning she had a severe bout of nausea and vomited at ~ 0700. She does report passing a little bit of gas, but has not yet had a bowel movement. She is going to try and attempt clears for lunch. She denies any fevers, sweats, chills, abdominal pain, nausea, shortness breath, chest pain currently. Additional Comments: Constitutional: No fever, sweats or chills Eyes: No diplopia, no worsening or blurred vision ENT: normal hearing, no trouble swallowing Respiratory: No cough, sputum, dyspnea at rest or on exertion Cardiovascular: No chest pain, tightness or palpitations Abdomen: See history of present illness Musculoskeletal: Minor right hip pain, no calf pain or swelling Neurologic: Prior to this admission ambulated with the assistance of a cane and walker, denies numbness/tingling or balance problems Psychiatric: No anxiety or depression Skin: No rash or itch (Flor Velásquez PA-C) Objective Vital Signs Date Time Temp Pulse Resp B/P (MAP) Pulse Ox O2 Delivery O2 Flow Rate FiO2 06/25/17 11:49 36.4 46 19 138/64 (88) 98 Nasal Cannula 1.0 06/25/17 07:57 94 Nasal Cannula 1.0 06/25/17 07:51 36.4 56 18 146/74 (98) 94 Nasal Cannula 1.0 06/25/17 07:20 96 Nasal Cannula 1.0 06/25/17 06:11 36.4 56 18 151/74 (99) 97 Nasal Cannula 2.0 06/25/17 06:10 18 95 06/25/17 05:02 14 97 06/25/17 04:03 16 97 06/25/17 03:21 36.3 50 14 153/72 (99) 97 Nasal Cannula 1.5 06/25/17 03:04 12 96 06/25/17 02:20 38 06/25/17 02:11 36.3 34 12 119/69 (86) 94 Nasal Cannula 1.5 06/25/17 02:02 16 93 06/25/17 01:00 18 95 06/25/17 00:00 14 96 06/24/17 23:03 14 95 06/24/17 23:00 36.3 63 14 161/74 (103) 95 Nasal Cannula 1.5 06/24/17 22:03 12 93 06/24/17 21:15 18 95 06/24/17 20:50 66 161/72 (101) 06/24/17 20:05 14 96 06/24/17 19:31 36.0 61 18 169/76 (107) 92 Nasal Cannula 2.0 06/24/17 19:10 Nasal Cannula 2.0 06/24/17 19:10 16 95 06/24/17 17:15 48 06/24/17 17:05 16 93 06/24/17 15:56 16 91 06/24/17 15:10 36.2 54 17 114/62 (79) 93 Nasal Cannula 2.0 06/24/17 14:45 16 93 06/24/17 13:48 14 93 06/24/17 12:51 12 94 06/24/17 12:45 57 16 129/63 (85) 93 Nasal Cannula 2.0 (Flor Velásquez, CHRISTIANOC) Physical Exam Notes: General: awake, alert, no apparent distress, sitting up in bedside chair Head: Normocephalic, atraumatic ENT: PERRL, EOMI, no pharyngeal exudate, mucous membranes moist Chest: Clear to auscultation, on 2L via NC, no adventitious breath sounds Cardiac: + Bradycardic, in NSR, no murmur, no JVD, normal peripheral pulses, good capillary refill Abdominal: NABS x 4 quadrants, + pannus, soft, nontender to palpation, no rebound, guarding or tenderness Extremities: R hip with dressing C/D/I, ice pack in place, no peripheral edema or erythema, calfs nontender to palpation Psych: Normal mood and affect Neuro: AAO x 3, patient reports seeing a " black lady in glasses in a house out the window", but I'm unable to determine if she is seeing another real person in a room on a differently in the hospital as she is diagonal from the [facility] currently. No motor deficits, speech is clear, no peripheral sensory deficits (lFor Velásquez, BRITTANY) Laboratory Results Last 24 Hours Test 06/24/17 12:34 06/24/17 17:22 06/24/17 20:42 06/25/17 05:20 White Blood Count 17.83 K/uL 11.39 K/uL Red Blood Count 3.85 M/uL 3.54 M/uL Hemoglobin 10.3 g/dL 9.5 g/dL Hematocrit 32.3 % 29.9 % Mean Corpuscular Volume 83.9 fL 84.5 fL Mean Corpuscular Hemoglobin 26.8 pg 26.8 pg Mean Corpuscular Hemoglobin Concent 31.9 g/dl 31.8 g/dl Platelet Count 267 K/uL 230 K/uL Mean Platelet Volume 9.3 fL 9.8 fL Neutrophils (%) (Auto) 86.0 % 81.3 % Lymphocytes (%) (Auto) 6.6 % 8.5 % Monocytes (%) (Auto) 6.7 % 8.9 % Eosinophils (%) (Auto) 0.2 % 0.9 % Basophils (%) (Auto) 0.2 % 0.1 % Neutrophils # (Auto) 15.33 K/uL 9.27 K/uL Lymphocytes # (Auto) 1.18 K/uL 0.97 K/uL Monocytes # (Auto) 1.20 K/uL 1.01 K/uL Eosinophils # (Auto) 0.04 K/uL 0.10 K/uL Basophils # (Auto) 0.03 K/uL 0.01 K/uL RDW Standard Deviation 53.5 fL 53.8 fL RDW Coefficient of Variation 17.2 % 17.3 % Immature Granulocyte % (Auto) 0.3 % 0.3 % Immature Granulocyte # (Auto) 0.05 K/uL 0.03 K/uL Sodium Level 142 mmol/L 140 mmol/L Potassium Level 3.9 mmol/L 4.5 mmol/L Chloride Level 110 mmol/L 109 mmol/L Carbon Dioxide Level 26 mmol/L 27 mmol/L Anion Gap 6.0 mmol/L 4.0 mmol/L Blood Urea Nitrogen 30 mg/dl 25 mg/dl Creatinine 0.93 mg/dl 0.96 mg/dl Est Creatinine Clear Calc Drug Dose 45.2 ml/min 43.7 ml/min Estimated GFR () 64.5 62.1 Estimated GFR (Non- 55.6 53.6 BUN/Creatinine Ratio 32.2 26.4 Random Glucose 142 mg/dl 126 mg/dl Calcium Level 9.1 mg/dl 8.6 mg/dl Magnesium Level 1.7 mg/dl 1.6 mg/dl Total Bilirubin 0.3 mg/dl 0.4 mg/dl Aspartate Amino Transf (AST/SGOT) 14 U/L 34 U/L Alanine Aminotransferase (ALT/SGPT) 17 U/L 22 U/L Alkaline Phosphatase 72 U/L 93 U/L Total Protein 5.7 gm/dl 5.1 gm/dl Albumin 2.7 gm/dl 2.4 gm/dl Globulin 3.0 gm/dl 2.7 gm/dl Albumin/Globulin Ratio 0.9 0.9 Bedside Glucose 142 mg/dl 117 mg/dl Estimated Average Glucose 160 mg/dl Hemoglobin A1c 7.2 % Troponin I < 0.015 ng/ml Test 06/25/17 07:58 Bedside Glucose 133 mg/dl (Flor Velásquez, PAGabbiC) Assessment and Plan This is a 86-year-old female undergoing an elective right total hip arthroplasty by Dr. Antoine on 06/24/17 Right hip arthroplasty - POD #1, completed by Dr. Antoine - Pain management and DVT prophylaxis per the primary team- continue Toradol for analgesia as her creatinine function is stable. - Patient does not wear oxygen at baseline, wean O2 as tolerated, currently on 2 L - Hemoglobin remains stable - Continue famotidine for GI prophylaxis - Other surgical history includes a left total hip arthroplasty and bilateral knee replacements Hypertension Bradycardia on EKG - Cardiology was consulted, Dr. Bhagat had seen her. It is likely that her clonidine and anesthesia are causing bradycardia at this time. We will continue to hold Coreg 0.2 mg BID until her heart rate increases. HR in the high 40s this morning. -Holding losartan 100 mg QAM for BP and chlorthalidone 25 mg QAM as she appears slightly dehydrated Nausea/vomiting - Patient was tolerating an oral diet well yesterday, acutely became nauseous this morning, no bowel movement yet but is passing a minimal amount of gas. Her bowel sounds are very helpful hypoactive on exam. If the patient is unable to tolerate clears for lunch today may consider getting a KUB to assess for obstruction - Continue antiemetics with Zofran and Reglan. Diabetes mellitus type II, non-insulin requiring - Continue insulin sliding scale with Accu-Cheks ACHS - Hold metformin 1000 mg BID Hx Dyslipidemia - Lipid panel from yesterday with total cholesterol <200 Hypothyroidism - Continue levothyroxine 137 g daily Obesity, BMI of 34 - PT/OT eval's, diet and exercise encouraged. DVT PPx: Teds, SCDs CODE STATUS: Full code Disposition: Patient from home, plan for [facility] for rehabilitation later this week, CM to assist with discharge planning (Flor Velásquez, BRITTANY) Attending Attestation: Pt seen/examined, chart reviewed, care plan d/w LAWANDA Velásquez. I agree w/ the cooper components of her documentation. Pt w/o complaints during my visit except very mild right hip pain Otherwise denies cp, sob, abd pain No BM yet. VSS - HRs improved (60s during my rounds) gen - nad neck - no JVD heart - RRR, s1, s2 lungs - CTA b/l abd - soft, BS+ but diminished ext - no edema A/P: 1. sinus tiki - agree with cardiology that clonidine could have caused. Pt also witnessed to have severe snoring and NEISHA could cause bradycardia as well. will need to watch for rebound HTN since clonidine will be held. 2. HTN - resume losartan in AM. Also resume chlorthalidone if Cr stable, electrolytes stable, etc. 3. T2DM - acceptable control. will cont to follow Yash Almaguer MD (Yash Almaguer MD)
--- NOTE | 2017-06-25 12:39 | PROGRESS NOTE ---
DATE: 06/25/2017 SUBJECTIVE: An 86-year-old white female, postop day 1 from right total hip replacement. She is doing well. Does not report any significant pain. No chest pain or shortness of breath. Not feeling dizzy or lightheaded. OBJECTIVE: VITAL SIGNS: Temperature is 36.4. Vital signs stable. She has been bradycardic with heart rate in the 50s. Blood pressure is stable. PHYSICAL EXAMINATION: GENERAL: This is a pleasant elderly female. She is sitting up in her bedside chair and looks comfortable. EXTREMITIES: Examination of the right hip reveals the dressing to be clean, dry and intact. Hip is located. She can dorsiflex and plantarflex her foot appropriately. She is neurologically intact. LABORATORY DATA: Hemoglobin 9.5, hematocrit 29.9. Electrolytes are stable. ASSESSMENT: An 86-year-old white female, postop day 1 from a right total hip replacement, doing pretty well. Pain is controlled. She has been bit bradycardic but asymptomatic. PLAN: 1. DVT prophylaxis including thigh-high TEDs, SCDs, and aspirin twice a day. 2. PT/OT. Weight bear as tolerated. Right total hip protocol. 3. Pain control. Doing well with current pain regimen. Really not having much pain. 4. Medical management as per the medicine team. 5. Disposition: She is hoping to be discharged to [facility] for rehab stay once medically stable.
[2017-06-25] MEDS ORDERED: ZOLPIDEM TARTRATE 5 MG TAB PO PRN (18:00)
[2017-06-25] MEDS ORDERED: ACET-24 PO (18:53)
[2017-06-25] MEDS ORDERED: ULT50X PO (18:53)
[2017-06-25] MEDS ORDERED: FRRG PO (18:53)
[2017-06-25] MEDS ORDERED: ASPEC325 PO (18:53)
--- NOTE | 2017-06-25 18:56 | Discharge Instructions ---
Discharge Instructions Date of Service Jun 25, 2017. Admission Reason for Admission: Right Hip Degenerative Joint Disease Discharge Discharge Diagnosis / Problem: Right Hip Replacement Discharge Goals Goal(s): Decrease discomfort, Improve function, Increase independence, Improve disease control, Therapeutic intervention Activity Recommendations Activity Level: Assistance Required (Total Hip Precautions) Therapies: Physical Therapy, Occupational Therapy Weightbearing Status: Right weightbearing . Additional Information Patient informed of condition: Yes Advance Directives: No DNR: No Level of Care: Skilled Communicable Disease: No Prognosis: Improving Instructions / Follow-Up Instructions / Follow-Up ACTIVITY RECOMMENDATIONS: Physical Therapy: * Aggressive physical therapy is not usually needed. You will learn to take care of yourself safely and walk. * Follow the "Hip Precautions Instructions." * In some cases, the neonatal social worker at the hospital will arrange to have a therapist come to your house for the first couple of weeks to help you learn these skills. * You need to practice on your own or with the help of a family member as needed. * When you learn these skills, most of the therapy can be done on your own. Home Exercise: * You were shown a series of exercises in the hospital. Do these exercises three to four times each day including the exercises you were shown in physical therapy. Walking: * Get up and walk several times each day. For the first four weeks, try not to stand or walk for more than one hour at a time. If you do stand or walk for more than one hour, you will not hurt anything, but your leg will likely swell. * As you feel comfortable, you may change from the walker or crutches to a cane and then to independent walking. MEDICATIONS: New Medicine: * You will likely be taking one or more of these medicines: 1. Tramadol - Take, as directed, when you need it, every four to six hours to control your pain. 2. Iron Sulfate - Take two times each day for the month after surgery to help you replace the blood lost during surgery. 3. Aspirin - Thins your blood to lessen the chance of forming a blood clot. * The most common side effects of pain medicine and iron are nausea and constipation. If nausea or constipation is too much of a problem or if you have any questions about your new medicines or doses, call [facility] at [phone]. We will try to help you manage these issues. VERY IMPORTANT TO READ AND REVIEW" Pain: * The immediate post-operative period after hip replacement surgery is often quite painful. * You are given a prescription for pain medicine. You should take it, as directed, when you need it, especially before physical therapy and before going to bed. Pain that interferes with sleep is very common and can last several months. * You will likely need pain medicine for the first two to four weeks. It will not stop all of the pain. The pain will lessen and as you feel better, you may change to milder pain medicine such as Tylenol. * The most common side effects of pain medicine are nausea and constipation, so don't take more than you need. SPECIAL CARE INSTRUCTIONS: TEDs/Elastic Stockings: * The white elastic stockings help limit swelling and prevent blood clots from forming in your legs. The more you wear them, the more they work. * Wear them for six weeks. Prevention of Infection: * Take antibiotics one hour before any dental cleaning, dental work, urological procedure, gastrointestinal procedure or any invasive surgery in order to prevent your new joint from getting infected. * You may get the antibiotics from the doctor performing the procedure or you may call our office at before and we will call in a prescription to the pharmacy of your choice. Things to Watch For: * Drainage from the incision site that occurs more than one week after your surgery. * Severely increased leg pain or swelling. * Increased redness at the incision site. * Fever above 102 degrees Fahrenheit. * Unusual chest pain or shortness of breath. * Unusual pain or burning with urination. Call [facility] at with any of the above problems or if you have any questions about your medicines or recovery. FOLLOW UP VISIT: Make an appointment to see your doctor for approximately two weeks after surgery for a progress check and staple removal by calling the office at . Current Hospital Diet Patient's current hospital diet: Diabetes Type 2 Diet Discharge Diet Recommended Diet: Diabetes Type 2 Diet Procedures Procedures Performed: Right Total Hip Arthroplasty, uncemented Pending Studies Studies pending at discharge: no Laboratory Results Hemoglobin A1c Test 06/25/17 05:20 Range/Units Estimated Average Glucose 160 mg/dl Hemoglobin A1c 7.2 H 4.5-5.6 % Medical Emergencies . Who to Call and When: Medical Emergencies: If at any time you feel your situation is an emergency, please call 911 immediately. . Non-Emergent Contact Non-Emergency issues call your: Surgeon . . "Provider Documentation" section prepared by Sagar Antoine. . Core Measure Problem Core Measures: None
[2017-06-25] MEDS: SENNA 8.6 MG TAB PO SCH (21:22)
[2017-06-25] MEDS: SIMVASTATIN 10 MG TAB PO SCH (21:22)
[2017-06-26] VITALS (21 sets, daily range): BP systolic 154–224; BP diastolic 60–97; PULSE 68–96; TEMP 36.4–37.6; O2SAT 91–97
[2017-06-26] MEDS: CHECK SCOPOLAMINE PATCH PLACEMENT SCH ×2 (00:05→07:41)
[2017-06-26] MEDS ORDERED: LOSARTAN POTASSIUM 50 MG TAB PO STA (00:40)
[2017-06-26] MEDS ORDERED: LOSARTAN POTASSIUM 50 MG TAB PO ONE (04:15)
[2017-06-26 05:39] LABS: BASO % 0.1 %; BASO ABS # 0.02 K/uL (0-0.2); COMPLETE YES; EOS % 0.5 %; HEMATOCRIT 32.2 % (37-47); IG% 0.3 %; LYMPH ABS # 0.92 K/uL (1.2-3.4); MEAN CELL VOLUME 82.8 fL (80-100); MEAN CORPUSCULAR HEMOGLOBIN 27.2 pg (25-34); MEAN CORPUSCULAR HGB CONC 32.9 g/dl (32-36); MONO % 6.2 %; NEUT % 86.9 %; PLATELET COUNT 268 K/uL (130-400); RED BLOOD COUNT 3.89 M/uL (4.2-5.4); WHITE BLOOD COUNT 15.43 K/uL (4.8-10.8)
[2017-06-26] MEDS: KETOROLAC TROMETHAMINE 15 MG/ML VIAL IV. SCH ×2 (05:53)
[2017-06-26] MEDS: LEVOTHYROXINE 137 MCG TAB PO SCH (05:58)
[2017-06-26] MEDS: ACETAMINOPHEN 500 MG TAB PO SCH ×3 (05:59→22:00)
[2017-06-26 06:10] LABS: BUN/CREATININE RATIO 23.5 (10-20); CALCIUM 9.5 mg/dl (8.5-10.1); CREATININE 1.1 mg/dl (0.60-1.20); POTASSIUM 4.2 mmol/L (3.5-5.1)
[2017-06-26] MEDS ORDERED: NURSING VERBAL MED ORDER ONE ×2 (06:45→07:45)
[2017-06-26] MEDS ORDERED: CLONIDINE HCL 0.1 MG TAB PO ONE (07:00)
--- NOTE | 2017-06-26 08:16 | Hospitalist Progress Note ---
Hospitalist Progress Note Date of Service Jun 26, 2017. (Flor Velásquez PA-C) Subjective Pt evaluation today including: conversation w/ patient, physical exam, chart review, lab review, review of studies Pain: None PO Intake: Good Voiding: no voiding problems The patient was seen and examined this morning. Pt reports doing well today, she has no pain and no other acute complaints. She anticipates discharge to [facility] tomorrow. Overnight events: Pt became tachycardic and hypertensive, likely due to with holding clonidine from bradycardia with anesthesia Constitutional: No fever, No chills, No sweats Eyes: No redness, No problem reported ENT: No sore throat, No trouble swallowing Respiratory: No shortness of breath, No dyspnea at rest Cardiovascular: No chest pain, No palpitations Abdomen: No pain, No nausea, No vomiting, No diarrhea Musculoskeletal: No joint pain, No muscle pain, No swelling Neurologic: + memory loss, No numbness/tingling Endo: No fatigue Skin: No rash, No itch (Flor Velásquez PA-C) Objective Vital Signs Date Time Temp Pulse Resp B/P (MAP) Pulse Ox O2 Delivery O2 Flow Rate FiO2 06/26/17 07:57 36.6 88 19 184/80 (114) 92 Room Air 06/26/17 06:19 198/62 (107) 06/26/17 06:00 90 204/75 (118) 06/26/17 03:43 36.4 90 16 165/60 (95) 97 Nasal Cannula 2.0 06/26/17 03:42 199/77 (117) 06/26/17 03:41 205/70 (115) 06/26/17 00:22 195/74 (114) 06/25/17 23:21 36.8 79 16 173/68 (103) 98 Nasal Cannula 2.0 06/25/17 19:45 66 06/25/17 19:45 97 Nasal Cannula 2.0 06/25/17 14:59 36.4 66 18 145/73 (97) 98 Nasal Cannula 2.0 06/25/17 11:49 36.4 46 19 138/64 (88) 98 Nasal Cannula 1.0 (Flor Velásquez PA-C) Physical Exam General Appearance: WD/WN, no apparent distress, + obese Eyes: PERRL, EOMI ENT: hearing grossly normal, pharynx normal Neck: no adenopathy, no JVD Respiratory/Chest: lungs clear, no respiratory distress, no accessory muscle use Cardiovascular: no murmur, + tachycardia (HR in high 80s but with regular rhythm) Abdomen: normal bowel sounds, non tender, soft Extremities: non-tender, no pedal edema, no calf tenderness, + pertinent finding (R hip wound intact, + peace, no drainage from wound, appears to be healing well. Nontender in surrounding area, no erythema or ecchymosis.) Neurologic/Psychiatric: alert, normal mood/affect, + pertinent finding (+ tangential thought process, answers questions appropriately and follows commands ) Skin: normal color, warm/dry (Flor Velásquez, BRITTANY) Laboratory Results Last 24 Hours Test 06/25/17 12:03 06/25/17 16:55 06/25/17 20:31 06/26/17 05:00 Bedside Glucose 132 mg/dl 147 mg/dl 161 mg/dl White Blood Count 15.43 K/uL Red Blood Count 3.89 M/uL Hemoglobin 10.6 g/dL Hematocrit 32.2 % Mean Corpuscular Volume 82.8 fL Mean Corpuscular Hemoglobin 27.2 pg Mean Corpuscular Hemoglobin Concent 32.9 g/dl Platelet Count 268 K/uL Mean Platelet Volume 10.0 fL Neutrophils (%) (Auto) 86.9 % Lymphocytes (%) (Auto) 6.0 % Monocytes (%) (Auto) 6.2 % Eosinophils (%) (Auto) 0.5 % Basophils (%) (Auto) 0.1 % Neutrophils # (Auto) 13.42 K/uL Lymphocytes # (Auto) 0.92 K/uL Monocytes # (Auto) 0.96 K/uL Eosinophils # (Auto) 0.07 K/uL Basophils # (Auto) 0.02 K/uL RDW Standard Deviation 51.9 fL RDW Coefficient of Variation 17.1 % Immature Granulocyte % (Auto) 0.3 % Immature Granulocyte # (Auto) 0.04 K/uL Sodium Level 139 mmol/L Potassium Level 4.2 mmol/L Chloride Level 107 mmol/L Carbon Dioxide Level 27 mmol/L Anion Gap 5.0 mmol/L Blood Urea Nitrogen 26 mg/dl Creatinine 1.10 mg/dl Est Creatinine Clear Calc Drug Dose 38.2 ml/min Estimated GFR () 52.6 Estimated GFR (Non- 45.4 BUN/Creatinine Ratio 23.5 Random Glucose 155 mg/dl Calcium Level 9.5 mg/dl (Flor Velásquez PA-C) Assessment and Plan This is a 86-year-old female undergoing an elective right total hip arthroplasty by Dr. Antoine on 06/24/17 Right hip arthroplasty - POD #3, completed by Dr. Antoine - Pain management and DVT prophylaxis per the primary team- continue Toradol for analgesia as her creatinine function is stable. - Patient does not wear oxygen at baseline, wean O2 as tolerated, currently on 2L - Hemoglobin remains stable, slowly trending back up. - Continue famotidine for GI prophylaxis - Other surgical history includes a left total hip arthroplasty and bilateral knee replacements Hypertension Bradycardia on EKG - Cardiology was consulted, Dr. Bhagat had seen her. It is likely that her clonidine and anesthesia are causing bradycardia at this time. - Overnight events included tachycardia and hypertensive episodes, she remains thus. Placed back on clonidine 0.1 mg BID but will likely take several hour to kick in, pt is asymptomatic. - Restart losartan 100 mg QAM for BP and chlorthalidone 25 mg QAM Nausea/vomiting- resolved - Tolerating oral intake without difficulty. Her bowel sounds are improved today, no BM yet, +flatus. - Continue antiemetics with Zofran and Reglan. Diabetes mellitus type II, non-insulin requiring - Continue insulin sliding scale with Accu-Cheks ACHS - Hold metformin 1000 mg BID Hx Dyslipidemia - Lipid panel from yesterday with total cholesterol <200 Hypothyroidism - Continue levothyroxine 137 g daily Obesity, BMI of 34 - PT/OT eval's, diet and exercise encouraged. DVT PPx: Teds, SCDs CODE STATUS: Full code Disposition: Patient from home, plan for [facility] for rehabilitation Friday, to assist with discharge planning (Flor Velásquez PA-C) LAWANDA Physician Supervision Note: I interviewed and examined the patient. Discussed withFlor Velásquez PAC and agree with findings and plan as documented in the note. Any exceptions or clarifications are listed here: None Agree the patient is in good condition today and looking forward to snf rehab vitals are reviewed, some systolic htn and tachy, likely from holding/reducing clonidine car is reg lungs are clear will slowly work to returning to home clonidine dose, expecting the bradycardia to be multifactorial in the post op period, given her elevated pulse and bp will shoot to return to 0.2 mg bid on day of discharge DM, ssi and resume metformin on discharge Documented By: Devendra Swift (Devendra Swift M.D.)
[2017-06-26] MEDS: DOCUSATE SODIUM 100 MG CAP PO SCH ×2 (08:53→20:25)
[2017-06-26] MEDS: FERROUS GLUCONATE 324 MG TAB PO SCH ×3 (08:53→17:57)
[2017-06-26] MEDS: CHLORTHALIDONE 25 MG TAB PO SCH (08:54)
[2017-06-26] MEDS: PANTOprazole SOD 40 MG TAB PO SCH (08:54)
[2017-06-26] MEDS: CEROVITE ADV FORMULA TAB PO SCH ×2 (08:54→20:25)
[2017-06-26] MEDS: ASPIRIN 325 MG ECTAB PO SCH ×2 (08:54→20:25)
[2017-06-26] MEDS: MAGNESIUM HYDROXIDE SUSP 30 ML UDC PO PRN (09:05)
[2017-06-26] MEDS: INSULIN HUMAN REGULAR SC SCH ×4 (09:05→20:38)
--- NOTE | 2017-06-26 09:18 | CARDIOLOGY PROGRESS NOTE ---
DATE: 06/26/2017 SUBJECTIVE: Mrs. Palomo is resting comfortably in the bedside chair without complaints of chest pain, dyspnea, palpitations, or syncope. OBJECTIVE: VITAL SIGNS: Blood pressure is 184/80 with a regular pulse of 88. Respiratory rate is 18. The patient is afebrile at 36.6 degrees Celsius. Saturations 92% on room air. NECK: Supple with full carotid upstrokes. There are no carotid bruits. Jugular venous pressure is flat at 90 degrees. There is no thyromegaly. CARDIOVASCULAR: Reveals a regular rhythm with a normal S1 and S2. No S3, S4, or murmurs are noted. LUNGS: Clear without rales, rhonchi, or wheezes. ABDOMEN: Obese without bruits. EXTREMITIES: Reveal intact radial artery pulses bilaterally. Right hip is dressed. DATA: CBC notes hemoglobin of 10.6, hematocrit 32.2, white count 15.4, platelet count 263,000. Electrolytes note a sodium of 139, potassium 4.2, chloride 107, bicarbonate 27, BUN 26, creatinine 1.1, glucose 155. IMPRESSION AND PLAN: 1. Status post right total hip replacement -- per Dr. Antoine. 2. Sinus bradycardia -- heart rate has improved with the discontinuation of clonidine, however, blood pressure is now elevated. Clonidine has been restarted at lower dose. 3. Hypertension -- as above. 4. Hypercholesterolemia. 5. Diabetes mellitus.
--- NOTE | 2017-06-26 15:58 | PROGRESS NOTE ---
DATE: 06/26/2017 SUBJECTIVE: An 86-year-old white female postop day 2 from a right total hip replacement. She is doing pretty well. She appears to have slightly confused this afternoon. Denies any chest pain or shortness of breath. Not feeling dizzy or lightheaded. No significant hip pain. OBJECTIVE: VITAL SIGNS: Temperature is 36.7. Vital signs stable. PHYSICAL EXAMINATION: GENERAL: Reveals a pleasant elderly female. She is sitting up in bed and I had to wake her up. She does appear to be slightly confused but seems to improve had a longer the conversation goes on. EXTREMITIES: Examination of the right hip reveals incision to be healed, well approximated. No significant drainage. Thigh is soft and supple. Hip is located. She is neurologically intact. LABORATORY DATA: Hemoglobin 10.6. Hematocrit 32.2. Electrolytes are stable. ASSESSMENT: An 86-year-old white female postop day 2 from right total hip replacement, doing pretty well. She is slightly confused, likely related to foreign environment, and medicines, and surgery. No focal neurological issues. PLAN: 1. DVT prophylaxis including thigh-high TEDs, SCDs, and aspirin twice a day. 2. PT/OT. Weightbearing as tolerated. Right total hip protocol. 3. Pain control. We are going to really try and limit her pain meds. She can certainly take Tylenol, but we will try and hold everything else. 4. Disposition: She is planning to be discharged to [facility] likely tomorrow.
[2017-06-26] MEDS: HydrALAZINE HCL 20 MG/ML VIAL IV PRN ×2 (16:16→20:14)
[2017-06-26] MEDS ORDERED: HydrALAZINE HCL 20 MG/ML VIAL IV. PRN (17:00)
[2017-06-26] MEDS: CLONIDINE HCL 0.1 MG TAB PO SCH (20:25)
[2017-06-26] MEDS: SIMVASTATIN 10 MG TAB PO SCH (20:26)
[2017-06-26] MEDS: SENNA 8.6 MG TAB PO SCH (20:26)
[2017-06-26] MEDS: ONDANSETRON INJ 2 MG/ML 2 ML VIAL IV PRN (20:42)
[2017-06-26] MEDS ORDERED: CLONIDINE HCL 0.1 MG TAB PO SCH (21:00)
[2017-06-27] VITALS (7 sets, daily range): BP systolic 84–199; BP diastolic 40–70; PULSE 60–102; TEMP 36.4–36.6; O2SAT 93–96
[2017-06-27] MEDS: MAGNESIUM HYDROXIDE SUSP 30 ML UDC PO PRN (05:24)
[2017-06-27] MEDS: HydrALAZINE HCL 20 MG/ML VIAL IV PRN (05:24)
[2017-06-27] MEDS: LEVOTHYROXINE 137 MCG TAB PO SCH (05:24)
[2017-06-27] MEDS: ACETAMINOPHEN 500 MG TAB PO SCH ×2 (05:24→12:55)
--- NOTE | 2017-06-27 07:35 | PROGRESS NOTE ---
DATE: 06/27/2017 SUBJECTIVE: 86-year-old white female postop day 3 from a right total hip replacement. She is doing well. She denies any significant pain. More awake, alert and appropriate this morning. OBJECTIVE: VITAL SIGNS: Temperature 36.6. Vital signs stable. PHYSICAL EXAMINATION: GENERAL: Reveals a pleasant elderly female. She is sleeping when I went in to visit her this morning. She woke up appropriately and responded appropriately to questions. EXTREMITIES: Examination of the right hip reveals the dressing to be clean, dry and intact. Hip is located. She is neurologically intact. ASSESSMENT: 86-year-old white female postop day 3 from a right total hip replacement, doing pretty well. Confusion seems to be improved. Pain is controlled. PLAN: 1. DVT prophylaxis including thigh-high TEDs, SCDs, and aspirin twice a day. 2. PT/OT. Weightbearing as tolerated. Right total hip protocol. 3. Pain control, doing well with current pain regimen. We really need to limit pain meds to avoid confusion. 4. Disposition: Plan to discharge to [facility] when medically stable.
[2017-06-27] MEDS: INSULIN HUMAN REGULAR SC SCH ×2 (08:25→12:54)
[2017-06-27] MEDS: ONDANSETRON INJ 2 MG/ML 2 ML VIAL IV PRN (08:30)
[2017-06-27] MEDS ORDERED: CLC100 PO (08:48)
[2017-06-27] MEDS ORDERED: POLY335019 PO (08:48)
[2017-06-27] MEDS ORDERED: DLCS PR (08:48)
--- NOTE | 2017-06-27 08:55 | Hospitalist Progress Note ---
Hospitalist Progress Note Date of Service Jun 27, 2017. Subjective Pt evaluation today including: conversation w/ patient, physical exam, chart review, lab review, review of studies Pain: none PO Intake: Good Voiding: no voiding problems The patient was seen and examined this morning. Pt reports feeling pretty well. She is anticipating going home today Additional Comments: Constitutional: No fever, sweats or chills Eyes: No diplopia, no worsening or blurred vision ENT: normal hearing, no trouble swallowing Respiratory: No cough, sputum, dyspnea at rest or on exertion Cardiovascular: No chest pain, tightness or palpitations Abdomen: No pain, nausea, vomiting, diarrhea or constipation Musculoskeletal: No joint pain, calf pain, swelling Neurologic: No weakness, numbness/tingling, or balance problems Psychiatric: No anxiety or depression Skin: No rash or itch Objective Vital Signs Date Time Temp Pulse Resp B/P (MAP) Pulse Ox O2 Delivery O2 Flow Rate FiO2 06/27/17 08:19 Room Air 06/27/17 08:09 96 Room Air 06/27/17 08:06 36.6 82 20 162/68 (99) 96 Room Air 06/27/17 06:00 163/67 (99) 06/27/17 05:42 199/70 (113) 06/26/17 23:59 Room Air 06/26/17 22:49 36.6 68 18 177/77 (110) 91 Room Air 06/26/17 21:20 154/70 (98) 06/26/17 20:56 96 174/68 (103) 93 Room Air 06/26/17 20:31 36.4 88 198/62 (107) 95 Room Air 06/26/17 20:12 92 205/78 (120) 06/26/17 19:30 190/97 (128) 94 06/26/17 18:25 91 174/73 (106) 06/26/17 17:08 91 179/71 (107) 93 Room Air 06/26/17 16:00 Room Air 06/26/17 15:58 37.2 84 20 192/69 (110) 93 Room Air 06/26/17 15:22 37.6 93 224/81 (128) 91 Room Air 06/26/17 14:01 36.7 79 18 194/72 (112) 95 Room Air 06/26/17 11:01 36.5 76 19 172/82 (112) 95 Room Air 06/26/17 10:21 84 190/81 (117) Physical Exam Notes: General Appearance: WD/WN, no apparent distress, + obese Eyes: PERRL, EOMI ENT: hearing grossly normal, pharynx normal Neck: no adenopathy, no JVD Respiratory/Chest: lungs clear, no respiratory distress, no accessory muscle use Cardiovascular: no murmur, NSR Abdomen: normal bowel sounds, non tender, soft Extremities: non-tender, no pedal edema, no calf tenderness, + pertinent finding (R hip wound intact, + peace, no drainage from wound, appears to be healing well. Nontender in surrounding area, no erythema or ecchymosis.) Neurologic/Psychiatric: alert, normal mood/affect, + pertinent finding (+ tangential thought process, answers questions appropriately and follows commands ) Skin: normal color, warm/dry Laboratory Results Last 24 Hours Test 06/26/17 12:00 06/26/17 17:30 06/26/17 20:24 06/27/17 08:09 Bedside Glucose 186 mg/dl 152 mg/dl 155 mg/dl 137 mg/dl Assessment and Plan This is a 86-year-old female undergoing an elective right total hip arthroplasty by Dr. Antoine on 06/24/17 Right hip arthroplasty - POD #4, completed by Dr. Antoine - Pain management and DVT prophylaxis per the primary team- continue Toradol for analgesia as her creatinine function is stable. - Patient does not wear oxygen at baseline, wean O2 as tolerated, on room air - Hemoglobin remains stable, slowly trending back up. - Continue famotidine for GI prophylaxis - Other surgical history includes a left total hip arthroplasty and bilateral knee replacements Hypertension Bradycardia on EKG - Cardiology was consulted, Dr. Bhagat had seen her. It is likely that her clonidine and anesthesia are causing bradycardia at this time. - Overnight events included tachycardia and hypertensive episodes, she remains thus. Hydralazine was administered once last evening and again early this morning. Resume Clonidine 0.2 mg BID - the patient then dropped BP with increased dose this morning and became nauseous and vomited x 1. Clonidine was stopped upon discharge. - HOLD losartan 100 mg QAM for BP and chlorthalidone 25 mg QD at time of d/c due to hypotension. Can follow with PCP regarding reinitiation of meds. Nausea/vomiting- resolved BM - Tolerating oral intake without difficulty. Her bowel sounds are improved today, + BM today +flatus. - Continue bowel regimen with prn meds at time of discharge - Continue antiemetics with Zofran and Reglan. Diabetes mellitus type II, non-insulin requiring - Continue insulin sliding scale with Accu-Cheks ACHS - Hold metformin 1000 mg BID - resume on discharge Hx Dyslipidemia - Lipid panel with total cholesterol <200 Hypothyroidism - Continue levothyroxine 137 g daily Obesity, BMI of 34 - PT/OT eval's, diet and exercise encouraged. DVT PPx: Teds, SCDs CODE STATUS: Full code Disposition: Patient from home, plan for [facility] for rehabilitation today, son planning to transport
[2017-06-27] MEDS: FERROUS GLUCONATE 324 MG TAB PO SCH ×2 (10:15→12:30)
[2017-06-27] MEDS: DOCUSATE SODIUM 100 MG CAP PO SCH (10:15)
[2017-06-27] MEDS: CHLORTHALIDONE 25 MG TAB PO SCH (10:16)
[2017-06-27] MEDS: CEROVITE ADV FORMULA TAB PO SCH (10:16)
[2017-06-27] MEDS: PANTOprazole SOD 40 MG TAB PO SCH (10:16)
[2017-06-27] MEDS: CLONIDINE HCL 0.1 MG TAB PO SCH (10:17)
[2017-06-27] MEDS: ASPIRIN 325 MG ECTAB PO SCH (10:17)
[2017-06-27] MEDS ORDERED: CTP/1 PO (12:35)
--- NOTE | 2017-07-09 15:56 | DISCHARGE SUMMARY ---
ADMITTING PHYSICIAN AND SURGEON: Dr. Antoine. ADMITTING DIAGNOSIS: Right hip degenerative joint disease. SURGERY PERFORMED: Right total hip arthroplasty. SECONDARY DIAGNOSES: Hypertension, elevated cholesterol, diabetes, hypothyroidism, and obesity. CONSULTS: Dr. Miranda for cardiology and Dr. Swift for postoperative medical management. HISTORY AND PHYSICAL EXAMINATION: Well documented in the patient's chart. HOSPITAL COURSE: The patient was admitted on 06/24/2017 and underwent total hip arthroplasty. She tolerated the procedure well. There were no complications. She was transferred to the PACU postoperatively and later to the orthopedic floor for further care. She was given Ancef for antibiotic prophylaxis and PIERCE stockings, SCDs and aspirin for DVT prophylaxis. Hemoglobin, hematocrit and vital signs were monitored during her hospital stay and remained stable. She developed some mild postoperative anemia and did not require any blood transfusions. There were no complications during her hospital stay. She did have some sinus bradycardia as well as some hypertension, which was managed throughout her hospital stay by the cardiology, medicine services and hospitalist service. By postoperative day #3, she was tolerating her diabetic diet. Pain was controlled with oral pain medicine. She was participating in physical therapy and no signs or symptoms of deep vein thrombosis. On postoperative day #3, she was [facility] a [facility] facility. She was given printed discharge instructions including new prescriptions for extra strength Tylenol, aspirin 325 mg b.i.d., bisacodyl for constipation, clonidine, docusate, iron supplement, polyethylene glycol and tramadol. She can continue her current home medications with the exception of her home dose of Tylenol and aspirin, which were changed and she was instructed to stop chlorthalidone, clonidine, and losartan. Continue physical therapy and weightbearing as tolerated. Total hip precautions. PIERCE stockings. Follow up in 10-12 days or sooner if any problems or concerns.
== END 2017-06-27 13:20 | DRG 470 ==
LOC: C.ACU 05:17 → C.3E 06:35 → ENRESERV 09:15
PROVIDERS: ADMIT Orthopaedic Surgery Sports Medicine; ATTEND Orthopaedic Surgery Sports Medicine
PROC: 0SR902A Replacement of Right Hip Joint with Metal on Polyethylene Synthetic Substitute, Uncemented, Open Approach (ICD-10-PCS; principal; 2017-06-24 07:00)
DX: M16.11 Unilateral primary osteoarthritis, right hip (principal); E78.00 Pure hypercholesterolemia, unspecified; I10 Essential (primary) hypertension; E11.9 Type 2 diabetes mellitus without complications; E66.9 Obesity, unspecified; E89.0 Postprocedural hypothyroidism; R00.0 Tachycardia, unspecified; R00.1 Bradycardia, unspecified; R11.2 Nausea with vomiting, unspecified; Z68.34 Body mass index [BMI] 34.0-34.9, adult; Z79.899 Other long term (current) drug therapy; Z79.82 Long term (current) use of aspirin; Z79.84 Long term (current) use of oral hypoglycemic drugs; T46.5X5A Adverse effect of other antihypertensive drugs, initial encounter; Y92.239 Unspecified place in hospital as the place of occurrence of the external cause; Z96.653 Presence of artificial knee joint, bilateral; Z96.642 Presence of left artificial hip joint

== ENCOUNTER → 2017-07-18 | Outpatient (CLI) | payer OTHER, MEDICARE ==
[~2017-07-18] MED LIST changes: +ACET-24 PO; -ACET1TAB84 PO; +ASPEC325 PO; -ASPI81TA28 PO; +CLC100 PO; -CLON0.2T PO; +CTP/1 PO; +DLCS PR; +FRRG PO; -HYG/25 PO; -LOSA1TAB38 PO; +POLY335019 PO; +ULT50X PO
[2017-07-18 13:52] LABS: CHOLESTEROL/HDL RATIO 2.4; THYROID STIMULATING HORMONE 5.59 uIu/ml (0.300-4.500)
== END | disposition home or self-care (01) ==
LOC: C.LABMFLN 09:18
PROVIDERS: ATTEND Family Medicine
DX: E78.5 Hyperlipidemia, unspecified (principal); E03.9 Hypothyroidism, unspecified

== ENCOUNTER → 2017-08-11 | Outpatient (CLI) | payer OTHER, MEDICARE ==
[~2017-08-11] MED LIST changes: -POLY335019 PO
[2017-08-11 16:50] LABS: URINE APPEARANCE CLEAR (CLEAR); URINE BILIRUBIN NEG (NEG); URINE COLOR DK YELLOW; URINE EPITHELIAL CELL AUTO >30 /lpf (0-5); URINE NITRITE NEG (NEG); URINE SPECIFIC GRAVITY 1.027 (1.000-1.030); UROBILINOGEN NEG (NEG)
[2017-08-11 17:01] LABS: MANUAL MICROSCOPIC REQUIRED? NO; REVIEW REQ? YES
[2017-08-11 17:11] LABS: BLOOD UREA NITROGEN 38 mg/dl (7-18); BUN/CREATININE RATIO 25.3 (10-20); CALCIUM 9.4 mg/dl (8.5-10.1); CARBON DIOXIDE 23 mmol/L (21-32); CHLORIDE 104 mmol/L (98-107); GLUCOSE 192 mg/dl (70-99); PHOSPHORUS 3.9 mg/dl (2.5-4.9); POTASSIUM 3.6 mmol/L (3.5-5.1); SODIUM 139 mmol/L (136-145)
[2017-08-11 17:35] LABS: URINE PROTIEN/CREAT RATIO 0.1 (0-0.2)
[2017-08-11 17:45] LABS: URINE PATH CASTS 0-3 GRANULAR CASTS /lpf (0)
== END | disposition home or self-care (01) ==
LOC: C.LAB1850 15:28
PROVIDERS: ATTEND Internal Medicine Nephrology
DX: I10 Essential (primary) hypertension (principal)

== ENCOUNTER → 2017-08-21 | Outpatient (CLI) | payer OTHER, MEDICARE ==
--- NOTE | 2017-08-21 12:07 | DIAGNOSTIC IMAGING REPORT ---
DOPPLER ULTRASOUND OF THE RENAL ARTERIES CLINICAL HISTORY: Refractory hypertension. COMPARISON STUDY: No priors. TECHNIQUE: Doppler sonography of the renal arteries was performed to assess renal artery stenosis. Images are reviewed in the transverse and longitudinal planes. FINDINGS: The kidneys are normal in size and echotexture. There is no hydronephrosis. The right kidney measures 11.1 cm in length and the left kidney measures 10.4 cm in length. On the right, intrarenal arterial resistive indices range from 0.79 to 1.0. Intrarenal arterial waveforms are normal with brisk upstrokes. The right renal arterial waveform is normal, and velocities within the right renal artery measure up to 163 cm/sec. The right renal vein is patent. On the left, intrarenal arterial resistive indices range from 0.81 to 1.0. Intrarenal arterial waveforms are normal with brisk upstrokes. The left renal arterial waveform is normal, and velocities within the left renal artery measure up to 102 cm/sec. The left renal vein is patent. The abdominal aorta is patent. Velocities within the abdominal aorta measure up to 135 cm/s. IMPRESSION: 1. There is no sonographic evidence of renal artery stenosis. 2. The kidneys are normal in size and without hydronephrosis. 3. Elevated resistive indices are suggested within both kidneys, left greater than right. This is nonspecific and may be on a technical basis. This can also be seen in the setting of medical renal disease. Clinical and laboratory correlation will be required. Electronically signed by: Felton Stahl M.D. 08/21/2017 12:05 PM Dictated Date/Time: 08/21/2017 12:02 PM
== END | disposition home or self-care (01) ==
LOC: C.ULTR 10:58
PROVIDERS: ATTEND Internal Medicine Nephrology
DX: I10 Essential (primary) hypertension (principal); R93.422 Abnormal radiologic findings on diagnostic imaging of left kidney; R93.421 Abnormal radiologic findings on diagnostic imaging of right kidney

== ENCOUNTER → 2017-08-27 | Outpatient (CLI) | payer OTHER, MEDICARE ==
[2017-08-27 16:07] LABS: BLOOD UREA NITROGEN 29 mg/dl (7-18); BUN/CREATININE RATIO 24.2 (10-20); CALCIUM 9.4 mg/dl (8.5-10.1); CARBON DIOXIDE 25 mmol/L (21-32); CHLORIDE 107 mmol/L (98-107); GLUCOSE 146 mg/dl (70-99); POTASSIUM 3.5 mmol/L (3.5-5.1); SODIUM 141 mmol/L (136-145)
== END | disposition home or self-care (01) ==
LOC: C.LAB1850 14:31
PROVIDERS: ATTEND Internal Medicine Nephrology
DX: N17.9 Acute kidney failure, unspecified (principal)

== ENCOUNTER → 2017-10-27 | Outpatient (CLI) | payer OTHER, MEDICARE ==
[2017-10-27 18:12] LABS: BLOOD UREA NITROGEN 27 mg/dl (7-18); BUN/CREATININE RATIO 21.8 (10-20); CALCIUM 9.9 mg/dl (8.5-10.1); CARBON DIOXIDE 23 mmol/L (21-32); CHLORIDE 107 mmol/L (98-107); CREATININE 1.22 mg/dl (0.60-1.20); GLUCOSE 139 mg/dl (70-99); MAGNESIUM 1.8 mg/dl (1.8-2.4); POTASSIUM 4.3 mmol/L (3.5-5.1); SODIUM 137 mmol/L (136-145)
[2017-10-27 18:27] LABS: PHOSPHORUS 3.1 mg/dl (2.5-4.9)
[2017-10-28 07:22] LABS: ESTIMATED AVERAGE GLUCOSE 163 mg/dl; HA1C FLAG Normal (Normal)
== END | disposition home or self-care (01) ==
LOC: C.LABMFLN 12:48
PROVIDERS: ATTEND Family Medicine
DX: I10 Essential (primary) hypertension (principal); E11.9 Type 2 diabetes mellitus without complications; E03.9 Hypothyroidism, unspecified

== ENCOUNTER → 2018-01-26 | Outpatient (CLI) | payer OTHER, MEDICARE ==
[2018-01-26 19:08] LABS: ALBUMIN 3.3 gm/dl (3.4-5.0); BLOOD UREA NITROGEN 44 mg/dl (7-18); CALCIUM 9.2 mg/dl (8.5-10.1); CARBON DIOXIDE 21 mmol/L (21-32); CREATININE 1.45 mg/dl (0.60-1.20); GLUCOSE 168 mg/dl (70-99); PHOSPHORUS 3.5 mg/dl (2.5-4.9); POTASSIUM 4.7 mmol/L (3.5-5.1); SODIUM 139 mmol/L (136-145)
== END | disposition home or self-care (01) ==
LOC: C.LABMFLN 10:57
PROVIDERS: ATTEND Internal Medicine Nephrology
DX: I10 Essential (primary) hypertension (principal)

== ENCOUNTER → 2018-01-30 | Outpatient (CLI) | payer OTHER, MEDICARE ==
[2018-01-30 18:32] LABS: ALBUMIN 3.4 gm/dl (3.4-5.0); BLOOD UREA NITROGEN 41 mg/dl (7-18); CALCIUM 9.7 mg/dl (8.5-10.1); CARBON DIOXIDE 21 mmol/L (21-32); CREATININE 1.43 mg/dl (0.60-1.20); GLUCOSE 112 mg/dl (70-99); PHOSPHORUS 4.4 mg/dl (2.5-4.9); POTASSIUM 4.6 mmol/L (3.5-5.1); SODIUM 140 mmol/L (136-145)
== END | disposition home or self-care (01) ==
LOC: C.LABMFLN 14:32
PROVIDERS: ATTEND Internal Medicine Nephrology
DX: N17.9 Acute kidney failure, unspecified (principal)

== ENCOUNTER → 2018-02-10 | Outpatient (CLI) | payer OTHER, MEDICARE ==
[2018-02-10 19:10] LABS: ALBUMIN 3.4 gm/dl (3.4-5.0); ALKALINE PHOSPHATASE 99 U/L (45-117); ALT/SGPT 17 U/L (12-78); AST/SGOT 12 U/L (15-37); TOTAL PROTEIN 6.9 gm/dl (6.4-8.2)
[2018-02-11 05:50] LABS: HEMOGLOBIN A1C 7.2 % (4.5-5.6)
== END | disposition home or self-care (01) ==
LOC: C.LABMFLN 11:44
PROVIDERS: ATTEND Family Medicine
DX: E11.9 Type 2 diabetes mellitus without complications (principal); E78.5 Hyperlipidemia, unspecified

== ENCOUNTER → 2018-04-14 | Outpatient (CLI) | payer OTHER, MEDICARE ==
[2018-04-14 14:55] LABS: ALBUMIN 3.2 gm/dl (3.4-5.0); BLOOD UREA NITROGEN 36 mg/dl (7-18); CALCIUM 9.2 mg/dl (8.5-10.1); CARBON DIOXIDE 26 mmol/L (21-32); CREATININE 1.39 mg/dl (0.60-1.20); GLUCOSE 180 mg/dl (70-99); PHOSPHORUS 3.6 mg/dl (2.5-4.9); SODIUM 139 mmol/L (136-145)
== END | disposition home or self-care (01) ==
LOC: C.LABMFLN 11:09
PROVIDERS: ATTEND Family Medicine
DX: N18.3 Chronic kidney disease, stage 3 (moderate) (principal)